=== PATIENT | female | born 1970 | race Caucasian/White ===

== ENCOUNTER 2017-04-07 13:13 | Emergency (ER) | payer OTHER ==
--- NOTE | 2017-04-07 14:33 | EDM.PDOC ---
ED HPI GENERAL MEDICAL PROBLEM - General Chief Complaint: Upper Extremity Injury/Pain Stated Complaint: R SHOULDER PAIN Time Seen by Provider: 04/07/17 13:34 Source of Information: Reports: Patient History Limitations: Reports: No Limitations - History of Present Illness INITIAL COMMENTS - FREE TEXT/NARRATIVE: The patient presents with right shoulder pain that radiates to her scapula. She also has a headache with it. It will go to her neck at times. She denies fever, chills, cough, chest pain, abdominal pain, nausea or vomiting. She has abdominal pain at times after her gastric bipass. She does not have a gallbladder anymore. This started 4 days ago. Onset: Sudden Duration: Day(s): (4) Location: Reports: Upper Extremity, Right (shoulder) Quality: Reports: Sharp Severity: Moderate Improves with: Reports: Immobilization Worsens with: Reports: Movement Context: Reports: Activity (She woke up with it) Associated Symptoms: Reports: No Other Symptoms Right Shoulder Pain Score (Numeric/FACES): 8 - Related Data Allergies Allergy/AdvReac Type Severity Reaction Status Date / Time hydromorphone [From Dilaudid] Allergy Nausea Verified 04/07/17 14:34 morphine Allergy Nausea Verified 04/07/17 14:34 Home Meds: Home Meds Cyclobenzaprine [Flexeril] 10 mg PO TID PRN #20 tablet 04/07/17 [Rx] Past Medical History Cardiovascular History: Reports: Other (See Below) Other Cardiovascular History: palpitations at times Gastrointestinal History: Reports: GERD, Other (See Below) Other Gastrointestinal History: severe dumping Musculoskeletal History: Reports: Arthritis, Other (See Below) Other Musculoskeletal History: low back disc issues Neurological History: Reports: Migraines Other Neuro History: gets better when uses c pap Psychiatric History: Reports: Anxiety, Depression - Past Surgical History GI Surgical History: Reports: Appendectomy, Bariatric Procedure, Cholecystectomy , Other (See Below) Other GI Surgeries/Procedures: lap band and removal Female Surgical History: Reports: Hysterectomy Other Female Surgeries/Procedures: partial hysterectomy Social & Family History - Caffeine Use Caffeine Use: Reports: Coffee - Recreational Drug Use Recreational Drug Use: No Review of Systems - Review of Systems Review Of Systems: See Below Constitutional: Reports: No Symptoms Eyes: Reports: No Symptoms Ears: Reports: No Symptoms Nose: Reports: No Symptoms Mouth/Throat: Reports: No Symptoms Respiratory: Reports: No Symptoms Cardiovascular: Reports: No Symptoms GI/Abdominal: Reports: No Symptoms Genitourinary: Reports: No Symptoms Musculoskeletal: Reports: Shoulder Pain (Right shoulder) ED EXAM, GENERAL - Physical Exam Exam: See Below Exam Limited By: No Limitations General Appearance: Alert, No Apparent Distress Ears: Normal External Exam Nose: Normal Inspection Head: Atraumatic, Normocephalic Neck: Normal Inspection Respiratory/Chest: No Respiratory Distress, Lungs Clear, Normal Breath Sounds Cardiovascular: Regular Rate, Rhythm, No Edema, No Murmur GI/Abdominal: Soft, Non-Tender, No Organomegaly, No Mass Back Exam: Normal Inspection Extremities: Other (Pain upon palpation to the anterior shoulder and lateral shoulder with some tenderness to the scapula. Good sensation and pulses distally.) Neurological: Alert, Oriented, No Motor/Sensory Deficits Course - Vital Signs Last Recorded V/S: Last Vital Signs Temp 98.2 F 04/07/17 13:37 Pulse 61 04/07/17 13:37 Resp 20 04/07/17 13:37 BP 142/84 H 04/07/17 13:37 Pulse Ox 96 04/07/17 13:37 - Orders/Labs/Meds Orders: Active Orders 24 hr Category Date Time Status UA W/MICROSCOPIC [URIN] Stat Lab 04/07/17 14:35 Results Labs: Laboratory Tests 04/07/17 Range/Units 14:35 Urine Color Yellow (Yellow) Urine Appearance Slt cloudy H (Clear) Urine pH 6.0 (5.0-8.0) Ur Specific [place] > or = 1.030 (1.005-1.030) Urine Protein Negative (Negative) Urine Glucose (UA) Negative (Negative) Urine Ketones Trace H (Negative) Urine Occult Blood Negative (Negative) Urine Nitrite Negative (Negative) Urine Bilirubin Negative (Negative) Urine Urobilinogen 0.2 (0.2-1.0) Ur Leukocyte Esterase Negative (Negative) - Re-Assessments/Exams Free Text/Narrative Re-Assessment/Exam: 04/07/17 15:45 Her shoulder x-ray looks good. She has some urinary frequency so I checked a UA and she has no UTI. I will discharge her home with some flexeril and a referral to OT. Departure - Departure Time of Disposition: 15:50 Disposition: Home, Self-Care 01 Condition: Good Clinical Impression: Sprain of shoulder Qualifiers: Encounter type: initial encounter Shoulder sprain type: unspecified sprain Laterality: right Qualified Code(s): S43.401A - Unspecified sprain of right shoulder joint, initial encounter - Discharge Information Prescriptions: Cyclobenzaprine [Flexeril] 10 mg PO TID PRN #20 tablet PRN Reason: Pain Referrals: PCP,Not In Area [Primary Care Provider] - Corrina Lewis MD [Physician] - 1 Week Forms: ED Department Discharge Additional Instructions: Use motrin or aleve for the pain and you may also try some flexeril. Follow up with occupational therapy. Please return if you get worse or follow up with your doctor of Dr Lewis. - My Orders Last 24 Hours: My Active Orders 04/07/17 14:35 UA W/MICROSCOPIC [URIN] Stat - Assessment/Plan Last 24 Hours: My Active Orders 04/07/17 14:35 UA W/MICROSCOPIC [URIN] Stat
--- NOTE | 2017-04-07 15:12 | CR ---
Right shoulder: Three views of the right shoulder were obtained. Comparison: No prior shoulder study. Glenohumeral joint and acromioclavicular joint appears within normal limits. No fracture, dislocation or other bony abnormality is seen. Impression: 1. No abnormality is identified on three-view right shoulder study. Diagnostic code #1
== END 2017-04-07 15:55 | disposition home or self-care (01) ==
LOC: JD.ED 13:13
DX: S43.401A Unspecified sprain of right shoulder joint, initial encounter (principal); Z88.5 Allergy status to narcotic agent; Z88.8 Allergy status to other drugs, medicaments and biological substances; X58.XXXA Exposure to other specified factors, initial encounter
CPT/HCPCS: 73030-26-RT; 73030-RT; 81001; 99283; 99284

== ENCOUNTER 2017-06-24 14:39 | Emergency (ER) | payer OTHER ==
--- NOTE | 2017-06-24 17:31 | EDM.PDOC ---
ED HPI GENERAL MEDICAL PROBLEM - General Chief Complaint: Chest Pain Stated Complaint: CHEST PAIN Time Seen by Provider: 06/24/17 14:50 Source of Information: Reports: Patient, RN Notes Reviewed - History of Present Illness INITIAL COMMENTS - FREE TEXT/NARRATIVE: 47-year-old female comes in with left-sided chest discomfort. She had a short episode of that yesterday and then more prolonged duration of discomfort today which continues as a mild ache even on arrival to ED. She has no known personal history for hypertension diabetes or coronary artery disease. She has not been ill with recent cough congestion or sore throat. No abdominal pain nausea vomiting or diaphoresis. There has been some radiation to her back. No radiation to the shoulder or arm or neck. Patient does state additionally that she is under a lot of stress at this time and does also have difficulties with anxiety. Treatments X RAY TECH: Reports: Aspirin Chest Pain Score (Numeric/FACES): 8 - Related Data Allergies Allergy/AdvReac Type Severity Reaction Status Date / Time hydromorphone [From Dilaudid] Allergy Nausea Verified 06/24/17 14:48 morphine Allergy Nausea Verified 06/24/17 14:48 Home Meds: Home Meds Zolpidem Tartrate [Ambien] 10 mg PO BEDTIME 06/24/17 [History] Past Medical History Cardiovascular History: Reports: Other (See Below) Other Cardiovascular History: palpitations at times Gastrointestinal History: Reports: GERD, Other (See Below) Other Gastrointestinal History: severe dumping Musculoskeletal History: Reports: Arthritis, Other (See Below) Other Musculoskeletal History: low back disc issues Neurological History: Reports: Migraines Other Neuro History: gets better when uses c pap Psychiatric History: Reports: Anxiety, Depression - Past Surgical History GI Surgical History: Reports: Appendectomy, Bariatric Procedure, Cholecystectomy , Other (See Below) Other GI Surgeries/Procedures: lap band and removal Female Surgical History: Reports: Hysterectomy Other Female Surgeries/Procedures: partial hysterectomy Social & Family History - Tobacco Use Smoking Status *Q: Never Smoker - Caffeine Use Caffeine Use: Reports: Coffee - Recreational Drug Use Recreational Drug Use: No ED ROS GENERAL - Review of Systems Review Of Systems: See Below Constitutional: Denies: Fever, Chills HEENT: Denies: Throat Pain Respiratory: Reports: Pleuritic Chest Pain. Denies: Shortness of Breath, Wheezing, Cough Cardiovascular: Reports: Chest Pain. Denies: Palpitations GI/Abdominal: Denies: Abdominal Pain (Left-sided), Nausea, Vomiting Musculoskeletal: Reports: Back Pain (Mild). Denies: Neck Pain, Shoulder Pain, Arm Pain Skin: Reports: No Symptoms Neurological: Reports: No Symptoms Psychiatric: Reports: Anxiety ED EXAM, GENERAL - Physical Exam Exam: See Below General Appearance: Alert, No Apparent Distress Eye Exam: Bilateral Eye: PERRL Throat/Mouth: Normal Inspection Head: Atraumatic Neck: Supple Respiratory/Chest: No Respiratory Distress, Lungs Clear, Chest Non-Tender, Other (no L breast mass or tenderness palpable) GI/Abdominal: Soft, Non-Tender Back Exam: No: CVA Tenderness (L), CVA Tenderness (R) Extremities: Normal Inspection. No: Pedal Edema, Leg Pain Neurological: Alert, Oriented, No Motor/Sensory Deficits Skin Exam: Warm, Normal Color EKG INTERPRETATION Rhythm: NSR [place]: Normal P-Wave: Present QRS: Normal ST-T: Normal Course - Vital Signs Last Recorded V/S: Last Vital Signs Temp 96.6 F 06/24/17 14:45 Pulse 62 06/24/17 14:45 Resp 16 06/24/17 14:45 BP 137/100 H 06/24/17 14:45 Pulse Ox 97 06/24/17 14:45 - Orders/Labs/Meds Orders: Active Orders 24 hr Category Date Time Status EKG 12 Lead [EKG Documentation Completion] [RC] STAT Care 06/24/17 15:15 Active Chest 1V Frontal [CR] Stat Exams 06/24/17 15:15 Taken Labs: Laboratory Tests 06/24/17 06/24/17 Range/Units 14:47 14:47 WBC 7.38 (3.98-10.04) K/mm3 RBC 4.81 (3.98-5.22) M/mm3 Hgb 12.6 (11.2-15.7) gm/L Hct 41.0 (34.1-44.9) % MCV 85.2 (79.4-94.8) fl MCH 26.2 (25.6-32.2) pg MCHC 30.7 L (32.2-35.5) g/dl RDW Std Deviation 42.7 (36.4-46.3) fL Plt Count 355 (182-369) K/mm3 MPV 10.9 (9.4-12.3) fl Neut % (Auto) 53.5 (34.0-71.1) % Lymph % (Auto) 33.7 (19.3-51.7) % [place]gg % (Auto) 7.0 (4.7-12.5) % Eos % (Auto) 5.0 (0.7-5.8) Baso % (Auto) 0.7 (0.1-1.2) % Neut # (Auto) 3.94 (1.56-6.13) K/mm3 Lymph # (Auto) 2.49 (1.18-3.74) K/mm3 [place]gg # (Auto) 0.52 H (0.24-0.36) K/mm3 Eos # (Auto) 0.37 H (0.04-0.36) K/mm3 Baso # (Auto) 0.05 (0.01-0.08) K/mm3 Sodium 140 (136-145) mEq/L Potassium 4.0 (3.5-5.1) mEq/L Chloride 104 (98-107) mEq/L Carbon Dioxide 29 (21-32) mEq/L Anion Gap 11.0 (5-15) BUN 18 (7-18) mg/dL Creatinine 0.6 (0.55-1.02) mg/dL Est Cr Clr Drug Dosing 123.74 mL/min Estimated GFR (MDRD) > 60 (>60) mL/min BUN/Creatinine Ratio 30.0 H (14-18) Glucose 96 (74-106) mg/dL Calcium 8.9 (8.5-10.1) mg/dL Total Bilirubin 0.2 (0.2-1.0) mg/dL AST 21 (15-37) U/L ALT 25 (14-59) U/L Alkaline Phosphatase 85 (46-116) U/L Troponin I < 0.017 (0.00-0.056) ng/mL Total Protein 7.8 (6.4-8.2) g/dl Albumin 3.9 (3.4-5.0) g/dl Globulin 3.9 gm/dL Albumin/Globulin Ratio 1.0 (1-2) - Re-Assessments/Exams Free Text/Narrative Re-Assessment/Exam: 06/24/17 18:28 Troponin, other labs, chest x-ray normal. At time of discharge she stated the discomfort was more in the left breast area. Breast exam was done with no unusual mass or tenderness palpable. She's not had a mammogram for close to 2 years so she has been encouraged to try get that done when it works. Discharge instructions as documented. Departure - Departure Time of Disposition: 17:29 Disposition: Home, Self-Care 01 Condition: Fair Clinical Impression: Atypical chest pain Instructions: Chest Wall Pain, [id number] Referrals: PCP,Not In Area [Primary Care Provider] - Forms: ED Department Discharge Additional Instructions: Advil or ibuprofen 600 mg 3 times daily with food for pain and inflammation until discomfort resolving, try get scheduled for a mammogram when that works for you. Try walk, exercise as much as possible to help relieve stress and anxiety, follow-up clinic if not much better within 3-4 days as expected, return to ED as needed if symptoms worsening in any way. - My Orders Last 24 Hours: My Active Orders 06/24/17 15:15 EKG 12 Lead [EKG Documentation Completion] [RC] STAT Chest 1V Frontal [CR] Stat - Assessment/Plan Last 24 Hours: My Active Orders 06/24/17 15:15 EKG 12 Lead [EKG Documentation Completion] [RC] STAT Chest 1V Frontal [CR] Stat
--- NOTE | 2017-06-24 19:15 | CR ---
Chest: Portable view of the chest was obtained. Comparison: No prior chest x-ray. Heart size and mediastinum are within normal limits for portable technique. Lungs are clear. Bony structures are grossly intact. Impression: 1. Nothing acute is identified on portable chest x-ray. Diagnostic code #1
== END 2017-06-24 17:42 | disposition home or self-care (01) ==
LOC: JD.ED 14:39
DX: R07.89 Other chest pain (principal); Z88.5 Allergy status to narcotic agent
CPT/HCPCS: 36415; 71045; 71045-26; 80053; 84484; 85025; 93005; 99284; 99285-25

== ENCOUNTER 2017-09-08 07:22 | Emergency (ER) | payer OTHER ==
--- NOTE | 2017-09-08 08:04 | EDM.PDOC ---
ED HPI GENERAL MEDICAL PROBLEM - General Chief Complaint: Lower Extremity Injury/Pain Stated Complaint: LT LEG PAIN Time Seen by Provider: 09/08/17 07:47 Source of Information: Reports: Patient, Family () History Limitations: Reports: No Limitations - History of Present Illness INITIAL COMMENTS - FREE TEXT/NARRATIVE: The patient states that she developed pain to her left popliteal fossa around 20 :00 last night while walking. Since then, the pain has wrapped around to the entire knee, although does not extend to the thigh or leg. The patient states that there is pain to the knee you and if she is doing nothing, although it feels better if her knee is extended, worse if it is flexed. The patient has not noticed any visible abnormality to the area, such as swelling or ecchymosis. No injury to the knee, and no prior similar symptoms. She has not tried any home remedies or medicines. The patient's primary care is not in [place]. Left Knee Pain Score (Numeric/FACES): 10 - Related Data Allergies Allergy/AdvReac Type Severity Reaction Status Date / Time hydromorphone [From Dilaudid] Allergy Nausea Verified 09/08/17 07:37 morphine Allergy Nausea Verified 09/08/17 07:37 Home Meds: Home Meds Zolpidem Tartrate [Ambien] 10 mg PO BEDTIME 06/24/17 [History] Citalopram [Citalopram HBr] 20 mg PO DAILY 09/08/17 [History] Multivit with Calcium,Iron,Min [Essential Daily] 1 tab PO DAILY 09/08/17 [ History] Past Medical History Gastrointestinal History: Reports: Chronic Diarrhea (following gastric bypass), GERD Musculoskeletal History: Reports: Arthritis Psychiatric History: Reports: Anxiety, Depression Endocrine/Metabolic History: Reports: Obesity/BMI 30+ - Past Surgical History HEENT Surgical History: Reports: Oral Surgery (1 wisdom tooth extracted) GI Surgical History: Reports: Appendectomy, Bariatric Procedure (LAP-BAND 2005, removed 2014. Gastric bypass 2014.), Cholecystectomy (2014), Hernia, Inguinal ( right, as an infant) Female Surgical History: Reports: Hysterectomy Social & Family History - Tobacco Use Smoking Status *Q: Never Smoker - Caffeine Use Caffeine Use: Reports: Coffee - Alcohol Use Alcohol Use History: Yes Alcohol Use Frequency: Rarely - Recreational Drug Use Recreational Drug Use: No - Living Situation & Occupation Living situation: Reports: , with Spouse, with Family (Stepdaughter, grandchild) Occupation: Unemployed Review of Systems - Review of Systems Review Of Systems: ROS reveals no pertinent complaints other than HPI. ED EXAM, GENERAL - Physical Exam Exam: See Below Exam Limited By: No Limitations General Appearance: Alert, WD/WN, No Apparent Distress Extremities: Other (No visible abnormality to the left knee or left lower extremity, when compared to the right, such as swelling, erythema, ecchymosis, or abrasion. No tenderness to the left popliteal fossa, lateral, medial, or anterior knee. No pain or laxity with stressing either the medial or lateral collateral ligament, and both anterior and posterior drawer signs are negative. Pain is induced in the medial left knee, however, with the Apley provocative maneuver, suggesting a meniscus injury.) Course - Vital Signs Last Recorded V/S: Last Vital Signs Temp 36.9 C 09/08/17 07:34 Pulse 54 L 09/08/17 07:34 Resp 18 09/08/17 07:34 BP 129/84 09/08/17 07:34 Pulse Ox 18 L 09/08/17 07:34 - Re-Assessments/Exams Free Text/Narrative Re-Assessment/Exam: 09/08/17 08:04 As pain was induced in the left knee with the Apley maneuver, I suspect the patient's pain may be related to a meniscal injury, however, for today's purposes, we will rule out a Lewis's cyst and DVT with a left lower extremity Doppler. 09/08/17 10:10 Doppler ultrasound of the left lower extremity is read by Dr. Garcia as: 1. No evidence of deep venous thrombosis is seen within the left lower extremity or within the right common femoral vein. 09/08/17 10:22 Test results discussed with the patient and her . I'm recommending that the patient take [id number] ibuprofen as needed for discomfort, and follow -up with Dr. Jerry. Ordinarily, I would place the patient into a knee immobilizer , however, I am aware that Dr. Jerry does not recommend them for meniscal injuries. Departure - Departure Time of Disposition: 10:22 Disposition: Home, Self-Care 01 Condition: Good Clinical Impression: Left knee pain - Discharge Information Instructions: Knee Pain, Adult Referrals: PCP,Not In Area [Primary Care Provider] - Ralph Jerry MD [Physician] - Forms: ED Department Discharge Additional Instructions: You were seen in the emergency room for left knee pain, without injury. Workup in the ER included a Doppler ultrasound of your left lower extremity, which returned normal. No Lewis's cyst or DVT was found. Based on your history and physical examination, we are concerned that you might have a meniscal injury. Take [id number] ibuprofen, 2-3 tablets (400-600 mg) every 8 hours, with food, as needed for discomfort. Follow-up with the Orthopedic Surgeon Dr. Jerry, at the next available appointment. If any other problems, please do not hesitate to return to the ER.
--- NOTE | 2017-09-08 09:47 | US ---
Left lower extremity deep venous ultrasound: Duplex and color flow imaging was obtained of the left common femoral, proximal greater saphenous, superficial femoral, popliteal, posterior tibial and peroneal veins. Right common femoral vein was also evaluated. Findings: Normal phasic flow, augmentation and compression is seen. Impression: 1. No evidence of deep venous thrombosis is seen within the left lower extremity or within the right common femoral vein. Diagnostic code #1
== END 2017-09-08 10:32 | disposition home or self-care (01) ==
LOC: JD.ED 07:22
DX: M25.562 Pain in left knee (principal); E66.9 Obesity, unspecified; Z88.5 Allergy status to narcotic agent
CPT/HCPCS: 93971-26-LT; 93971-LT; 99284-25

== ENCOUNTER 2017-09-11 08:14 | Emergency (ER) | payer OTHER ==
--- NOTE | 2017-09-11 08:54 | EDM.PDOC ---
ED HPI GENERAL MEDICAL PROBLEM - General Chief Complaint: Lower Extremity Injury/Pain Stated Complaint: L LEG PAIN Time Seen by Provider: 09/11/17 08:31 Source of Information: Reports: Patient History Limitations: Reports: No Limitations - History of Present Illness INITIAL COMMENTS - FREE TEXT/NARRATIVE: The patient presents with left knee pain. She said a few days ago she was on the floor playing with her grand baby. She got up and felt some discomfort in her left knee. That quickly went away but later in the evening she had pain in that knee again when she was walking up the stairs. She was seen here in the ER and an US was done to rule out DVT and Lewis's cyst. That all looked good. It was suspected she had a meniscal injury. She was to follow up with Dr Jerry. She says there is a constant pressure in her knee and she cannot bend it very well. She also says it feels like it will lock. She does not think her knee is unstable but when she sits on the toilet she "flops" down because her knee kind of gives out. Onset: Gradual Duration: Day(s): Location: Reports: Lower Extremity, Left (Knee) Quality: Reports: Pressure Severity: Moderate Improves with: Reports: Immobilization Worsens with: Reports: Movement Context: Reports: Activity (She was on the floor with her grand baby and when she was getting up she felt pain) Associated Symptoms: Reports: No Other Symptoms Left Knee Pain Score (Numeric/FACES): 8 - Related Data Allergies Allergy/AdvReac Type Severity Reaction Status Date / Time hydromorphone [From Dilaudid] Allergy Nausea Verified 09/11/17 08:26 morphine Allergy Nausea Verified 09/11/17 08:26 Home Meds: Home Meds Zolpidem Tartrate [Ambien] 10 mg PO BEDTIME 06/24/17 [History] Citalopram [Citalopram HBr] 20 mg PO DAILY 09/08/17 [History] Multivit with Calcium,Iron,Min [Essential Daily] 1 tab PO DAILY 09/08/17 [ History] Hydrocodone/Acetaminophen [Hydrocodon-Acetaminophen 5-325] 1 - 2 each PO Q6HR PRN #10 tablet 09/11/17 [Rx] Naproxen Sodium [Aleve] 220 mg PO BID PRN 06/09/18 [History] Past Medical History - Past Health History Medical/Surgical History: Denies Medical/Surgical History Cardiovascular History: Reports: Other (See Below) Other Cardiovascular History: palpitations at times Gastrointestinal History: Reports: Chronic Diarrhea, GERD Other Gastrointestinal History: severe dumping Genitourinary History: Reports: UTI, Recurrent 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: Musculoskeletal History: Reports: Arthritis Other Musculoskeletal History: low back disc issues Neurological History: Reports: Migraines Other Neuro History: gets better when uses c pap Psychiatric History: Reports: Anxiety, Depression Endocrine/Metabolic History: Reports: Obesity/BMI 30+ Hematologic History: Reports: Anemia, Blood Transfusion(s) - Infectious Disease History Infectious Disease History: Reports: Chicken Pox, Meningitis, Mumps - Past Surgical History HEENT Surgical History: Reports: Oral Surgery GI Surgical History: Reports: Appendectomy, Bariatric Procedure, Cholecystectomy , Hernia, Inguinal, Other (See Below) Other GI Surgeries/Procedures: lap band. Female Surgical History: Reports: Hysterectomy Social & Family History - Tobacco Use Smoking Status *Q: Never Smoker Second Hand Smoke Exposure: Yes - Caffeine Use Caffeine Use: Reports: Coffee, Tea - Recreational Drug Use Recreational Drug Use: No - Living Situation & Occupation Living situation: Reports: , with Spouse, with Family (Stepdaughter, grandchild) Occupation: Unemployed Review of Systems - Review of Systems Review Of Systems: See Below Constitutional: Reports: No Symptoms Ears: Reports: No Symptoms Nose: Reports: No Symptoms Mouth/Throat: Reports: No Symptoms Respiratory: Reports: No Symptoms Cardiovascular: Reports: No Symptoms GI/Abdominal: Reports: No Symptoms Genitourinary: Reports: No Symptoms Musculoskeletal: Reports: Joint Pain (Left knee) ED EXAM, GENERAL - Physical Exam Exam: See Below Exam Limited By: No Limitations General Appearance: Alert, No Apparent Distress Ears: Normal External Exam Nose: Normal Inspection Head: Atraumatic, Normocephalic Neck: Normal Inspection Respiratory/Chest: No Respiratory Distress, Lungs Clear, Normal Breath Sounds Cardiovascular: Regular Rate, Rhythm, No Edema, No Murmur GI/Abdominal: Soft, Non-Tender, No Organomegaly, No Mass Extremities: Other (No edema noted. Mild pain upon palpation to the medial and lateral knee. Ligaments are stable on exam. Good sensation and pulses distally.) Neurological: Alert, Oriented, No Motor/Sensory Deficits Course - Vital Signs Last Recorded V/S: Last Vital Signs Temp 97.9 F 09/11/17 08:25 Pulse 66 09/11/17 08:25 Resp 18 09/11/17 08:25 BP 105/62 09/11/17 08:25 Pulse Ox 97 09/11/17 08:25 - Orders/Labs/Meds Orders: Active Orders 24 hr Category Date Time Status Knee Min 4V Lt [CR] Stat Exams 09/11/17 08:48 Taken Durable Medical Equipment for Discharge [DME for Oth 09/11/17 09:28 Ordered Discharge] [COMM] Stat - Re-Assessments/Exams Free Text/Narrative Re-Assessment/Exam: 09/11/17 08:56 I will get an x-ray of her knee. 09/11/17 09:29 Her x-ray shows some mild arthritis. I suspect this is a meniscus injury. I will see if I can get her a knee immobilizer and follow up with Dr Jerry. Departure - Departure Time of Disposition: 09:30 Disposition: Home, Self-Care 01 Condition: Good Clinical Impression: Left knee pain Qualifiers: Chronicity: acute Qualified Code(s): M25.562 - Pain in left knee Sprain of left knee Qualifiers: Encounter type: initial encounter Involved ligament of knee: unspecified ligament Qualified Code(s): S83.92XA - Sprain of unspecified site of left knee, initial encounter - Discharge Information Prescriptions: Hydrocodone/Acetaminophen [Hydrocodon-Acetaminophen 5-325] 1 - 2 each PO Q6HR PRN #10 tablet PRN Reason: Pain Referrals: Marietta Zuniga MD [Primary Care Provider] - Ralph Jerry MD [Physician] - 2 Weeks Forms: ED Department Discharge Additional Instructions: Ice your knee for 15 minutes 3 times per day for 2 days. Take motrin or aleve for pain. If that does not work you can use some hydrocodone. Wear the knee brace as needed for comfort. Follow up with Dr Jerry in 1 to 2 weeks. Please return if you are worse. - My Orders Last 24 Hours: My Active Orders 09/11/17 08:48 Knee Min 4V Lt [CR] Stat 09/11/17 09:28 Durable Medical Equipment for Discharge [DME for Discharge] [COMM] Stat - Assessment/Plan Last 24 Hours: My Active Orders 09/11/17 08:48 Knee Min 4V Lt [CR] Stat 09/11/17 09:28 Durable Medical Equipment for Discharge [DME for Discharge] [COMM] Stat
--- NOTE | 2017-09-13 11:27 | CR ---
Left knee: Four views of the left knee were obtained. Comparison: No prior knee exam. Osteophytes are noted off the medial and lateral knee. Osteophytes are noted off the patella. No left-sided joint effusion is seen. No acute fracture or other bony abnormality is identified. Impression: 1. Degenerative change as noted above. Diagnostic code #2
== END 2017-09-11 09:50 | disposition home or self-care (01) ==
LOC: JD.ED 08:14
DX: S83.92XA Sprain of unspecified site of left knee, initial encounter (principal); Z88.5 Allergy status to narcotic agent; Z88.8 Allergy status to other drugs, medicaments and biological substances; Z79.899 Other long term (current) drug therapy; Z87.440 Personal history of urinary (tract) infections; X58.XXXA Exposure to other specified factors, initial encounter
CPT/HCPCS: 73564-26-LT; 73564-LT; 99283; 99284